=== PATIENT | male | born 1985 | race Hispanic/Latino ===

== ENCOUNTER 2018-05-05 20:43 | Outpatient (AMB) | payer OTHER, SELFPAY ==
[2018-05-05 22:36] VITALS: BP 130/82; PULSE 78; RESP 20; TEMP 37.3; O2SAT 98; BMI 30.1
--- NOTE | 2018-05-05 22:36 | UCVISIT ---
Intake Ht./Wt. Decline/Exclusions Patient Declined Height and Weight this visit: No PT Meets exclusion criteria: No Vital Signs 05/05/18 22:36 Height Method Measured Weight Measurement Method Standing Scale BMI 30.1 Temp 99.2 F Temp Source Temporal Artery Scan Pulse 78 Pulse Source Monitor Respiration 20 BP 130/82 Blood Pressure Source Automatic Cuff Blood Pressure Location Right Upper Arm Position Sitting Pulse Oximetry (%) 98 Oxygen Delivery Method Room Air Intake Zika Travel: No Been in contact w/anyone who has been Dx w/Zika Virus: No Been in contact w/anyone sick during travel outside country: No Patient >or equal to 18 years BMI outside of range 18.5-24.9: Yes Visit Reasons: UC Cough Primary Care Provider: Other,. Is patient in pain?: No Triage Triage Allergy / Med Rec Allergies Penicillins Allergy (Unknown, Verified 05/05/18 23:20) RASH, SWELLING Band Placement: Patient Identification DANNA: [id number] Arrival Mode of Arrival: Private Vehicle Method of Arrival: Ambulatory Accompanied By: Self PCP or OBGYN visit in last 3 months: No Language Preferred Language: Pashto Distance Learning Technician Required: No Social History Alcohol / Drugs Hx Alcohol Use: No Hx Substance Use: No Safety Do You Feel Safe at Home: Yes Authorities Contacted: N/A Lee Fall Scale Special Populations Patient Comatose, Paralyzed or Immobile: No Patient Under the Age of 44 Years Old: No Assessment History of falling; immediate or within 3 months: No Secondary diagnosis: No Ambulatory aid: None IV Infusion: No Gait/Transferring: Normal/bedrest/immobile Mental Status: Oriented to own ability Score Score: 0 Risk Level/Action Risk Level: Low Risk Action: Good Basic Nursing Care Fall Star Level 1 Fall Star Level 1: Yes Patient Education Topic Education Topics: Discharge Instructions and Plan of Care Teaching Recipient: Patient Readiness, Motivation to Learn: Active Methods: Verbal instruction and Hand Out Educ Materials Suggested by INFO Button/Rx Monograph Given: No Response: Verbalize Understanding Distance Learning Technician Required: No [facility] Hx Congestive Heart Failure: No Hx Diabetes Mellitus Type 1: No Hx Diabetes Mellitus Type 2: No Hx Renal Disease: No Hx Chronic Obstructive Pulmonary Disease (COPD): No Past Medical History Reviewed and agree with Nursing documentation.: Yes Past Medical History History Provided By: Patient Cardiac Medical History Hx Congestive Heart Failure: No Endocrine Medical History Hx Diabetes Mellitus Type 1: No Hx Diabetes Mellitus Type 2: No Genitourinary Medical History Hx Renal Disease: No Respiratory Medical History Hx COPD: No HPI Cough Patient presents today with complaints of 3-4-day history of cough and congestion runny nose and severe right ear pain no fever chills nausea vomiting fatigue is been taking [id number] medications with minimal relief of symptoms Pulmonary Results: No Data to Display Review of Systems (UC) Const Constitutional: Reports system reviewed and no additional complaints, except as documented Eyes Eyes: Reports system reviewed and no additional complaints, except as documented ENT Ears. Nose, Mouth, and Throat: Reports system reviewed and no additional complaints, except as documented Card Cardiovascular: Reports system reviewed and no additional complaints, except as documented Resp Respiratory: Reports system reviewed and no additional complaints, except as documented GI Gastrointestinal: Reports system reviewed and no additional complaints, except as documented Exam (UC) Alert and oriented x3 in no acute distress skin is normal color no diaphoresis eyes anicteric PERRLA ear canals are clear left TM is erythematous and retracted nose patent no discharge mucosa pink no exudate no lesions neck supple no lymphadenopathy lungs are clear to auscultation bilaterally heart is regular rate rhythm normal S1-S2 no murmurs rubs or gallops noted SPO2%: 98% SPO2 type: Room Air SPO2% Normal/Abnormal: Normal Office Procedures UC Level of Care Nursing/Assessment/Reassessment Patient Status: Established Patient Nursing Assessment/Reassessment: Triage Asessment, Initial Vital Signs and RN General Assessments Coordination of Care: DC Instructions Simple Established Patient Charge Established Patient Point Assignment: 40 Established Patient Point Assignment: EP Level 2 (40-75) Procedures: Pulse Ox reading: Yes Assessment and Plan Assessment & Plan (1) Viral URI with cough: Plan - Rafael Anne PA-C: For your cough take [id number] medications hydrate well for your ear infection take antibiotics as directed follow-up with primary care provider if no improvement in 3 days (2) Right otitis media: Qualifiers: Otitis media type: unspecified Qualified Code(s): H66.91 - Otitis media, unspecified, right ear Plan Details Other Medications: New: azithromycin (Zithromax Z-Max) 500 mg po x 1 day then 250 mg po x 4 days 6 tabs 0RF Primary Care Provider: Other,. 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 Supervising Physician: Myron Gan DC Evaluation Discharge Information Seen, Treated and Released by Provider: No Left Prior to Receiving Discharge Instructions: No Transfer to Outside Facility: No Vital Signs Vitals Signs N/A: Yes Pain Pain Medication / Other Intervention Provided: No Medication Medication Given this Visit: No Discharge Information Condition on Discharge: Stable Mode of Discharge: Ambulatory Discharge Transportation: Private Vehicle Instructions Distance Learning Technician Required: No Discharge Instructions Given To: Patient Was Follow up Care Ordered: Yes Verbalizes Understanding of Discharge Instructions: Yes [facility] information card provided?: Yes Patient plan follow up w/PCP for [facility]: No Discharge Comment Discharge Comment: PATIENT VERBALIZED UNDERSTANDING OF ALL DISCHARGE INSTRUCTIONS INCLUDING REASONS WARRANTING A VISIT TO ER, MEDICATION INSTRUCTIONS AND A NEED FOR FOLLOW UP APPT WITH PRIMARY PHYSICIAN WITHIN 3-5 DAYS.
--- NOTE | 2018-05-05 22:49 | URCARE_ITS ---
Intake Ht./Wt. Decline/Exclusions Patient Declined Height and Weight this visit: No PT Meets exclusion criteria: No Vital Signs 05/05/18 22:36 Height Method Measured Weight Measurement Method Standing Scale BMI 30.1 Temp 99.2 F Temp Source Temporal Artery Scan Pulse 78 Pulse Source Monitor Respiration 20 BP 130/82 Blood Pressure Source Automatic Cuff Blood Pressure Location Right Upper Arm Position Sitting Pulse Oximetry (%) 98 Oxygen Delivery Method Room Air Intake Zika Travel: No Been in contact w/anyone who has been Dx w/Zika Virus: No Been in contact w/anyone sick during travel outside country: No Patient >or equal to 18 years BMI outside of range 18.5-24.9: Yes Visit Reasons: UC Cough Primary Care Provider: Other,. Is patient in pain?: No Triage Triage Allergy / Med Rec Allergies Penicillins Allergy (Unknown, Verified 05/05/18 23:20) RASH, SWELLING Band Placement: Patient Identification DANNA: [id number] Arrival Mode of Arrival: Private Vehicle Method of Arrival: Ambulatory Accompanied By: Self PCP or OBGYN visit in last 3 months: No Language Preferred Language: Turkmen Horizontal Resaw Operator Required: No Social History Alcohol / Drugs Hx Alcohol Use: No Hx Substance Use: No Safety Do You Feel Safe at Home: Yes Authorities Contacted: N/A Lee Fall Scale Special Populations Patient Comatose, Paralyzed or Immobile: No Patient Under the Age of 44 Years Old: No Assessment History of falling; immediate or within 3 months: No Secondary diagnosis: No Ambulatory aid: None IV Infusion: No Gait/Transferring: Normal/bedrest/immobile Mental Status: Oriented to own ability Score Score: 0 Risk Level/Action Risk Level: Low Risk Action: Good Basic Nursing Care Fall Star Level 1 Fall Star Level 1: Yes Patient Education Topic Education Topics: Discharge Instructions and Plan of Care Teaching Recipient: Patient Readiness, Motivation to Learn: Active Methods: Verbal instruction and Hand Out Educ Materials Suggested by INFO Button/Rx Monograph Given: No Response: Verbalize Understanding Horizontal Resaw Operator Required: No [facility] Hx Congestive Heart Failure: No Hx Diabetes Mellitus Type 1: No Hx Diabetes Mellitus Type 2: No Hx Renal Disease: No Hx Chronic Obstructive Pulmonary Disease (COPD): No Past Medical History Reviewed and agree with Nursing documentation.: Yes Past Medical History History Provided By: Patient Cardiac Medical History Hx Congestive Heart Failure: No Endocrine Medical History Hx Diabetes Mellitus Type 1: No Hx Diabetes Mellitus Type 2: No Genitourinary Medical History Hx Renal Disease: No Respiratory Medical History Hx COPD: No HPI Cough Patient presents today with complaints of 3-4-day history of cough and congestion runny nose and severe right ear pain no fever chills nausea vomiting fatigue is been taking [id number] medications with minimal relief of symptoms Pulmonary Results: No Data to Display Review of Systems (UC) Const Constitutional: Reports system reviewed and no additional complaints, except as documented Eyes Eyes: Reports system reviewed and no additional complaints, except as documented ENT Ears. Nose, Mouth, and Throat: Reports system reviewed and no additional complaints, except as documented Card Cardiovascular: Reports system reviewed and no additional complaints, except as documented Resp Respiratory: Reports system reviewed and no additional complaints, except as documented GI Gastrointestinal: Reports system reviewed and no additional complaints, except as documented Exam (UC) Alert and oriented x3 in no acute distress skin is normal color no diaphoresis eyes anicteric PERRLA ear canals are clear left TM is erythematous and retracted nose patent no discharge mucosa pink no exudate no lesions neck supple no lymphadenopathy lungs are clear to auscultation bilaterally heart is regular rate rhythm normal S1-S2 no murmurs rubs or gallops noted SPO2%: 98% SPO2 type: Room Air SPO2% Normal/Abnormal: Normal Office Procedures UC Level of Care Nursing/Assessment/Reassessment Patient Status: Established Patient Nursing Assessment/Reassessment: Triage Asessment, Initial Vital Signs and RN General Assessments Coordination of Care: DC Instructions Simple Established Patient Charge Established Patient Point Assignment: 40 Established Patient Point Assignment: EP Level 2 (40-75) Procedures: Pulse Ox reading: Yes Assessment and Plan Assessment & Plan (1) Viral URI with cough: Plan - Rafael Anne PA-C: For your cough take [id number] medications hydrate well for your ear infection take antibiotics as directed follow-up with primary care provider if no improvement in 3 days (2) Right otitis media: Qualifiers: Otitis media type: unspecified Qualified Code(s): H66.91 - Otitis media, unspecified, right ear Plan Details Other Medications: New: azithromycin (Zithromax Z-Max) 500 mg po x 1 day then 250 mg po x 4 days 6 tabs 0RF Primary Care Provider: Other,. Instructions: ED Middle Ear Infec Abx Tx ED URI Viral Additional Information PA/DRYWALL SANDER Supervising Physician: Myron Gan DC Evaluation Discharge Information Seen, Treated and Released by Provider: No Left Prior to Receiving Discharge Instructions: No Transfer to Outside Facility: No Vital Signs Vitals Signs N/A: Yes Pain Pain Medication / Other Intervention Provided: No Medication Medication Given this Visit: No Discharge Information Condition on Discharge: Stable Mode of Discharge: Ambulatory Discharge Transportation: Private Vehicle Instructions Horizontal Resaw Operator Required: No Discharge Instructions Given To: Patient Was Follow up Care Ordered: Yes Verbalizes Understanding of Discharge Instructions: Yes [facility] information card provided?: Yes Patient plan follow up w/PCP for [facility]: No Discharge Comment Discharge Comment: PATIENT VERBALIZED UNDERSTANDING OF ALL DISCHARGE INSTRUCTIONS INCLUDING REASONS WARRANTING A VISIT TO ER, MEDICATION INSTRUCTIONS AND A NEED FOR FOLLOW UP APPT WITH PRIMARY PHYSICIAN WITHIN 3-5 DAYS.
== END 2018-05-05 23:05 | disposition home or self-care (01) ==
PROVIDERS: Visit Provider Physician Assistant
DX: I10 Essential (primary) hypertension (principal)